=== PATIENT | female | born 1995 | race American Indian/Alaskan Native ===

== ENCOUNTER 2018-03-19 12:40 | Emergency (ER) | payer SELFPAY ==
--- NOTE | 2018-03-19 14:45 | EDPHYS ---
Physician Documentation [facility] Name: Larry Morrow Age: 22 yrs Sex: Female : 1995 Arrival Date: 03/19/2018 Time: 12:43 Bed 12 Private MD: Hiro Cornelius HPI: 03/19 15:31 This 22 yrs old Other Female presents to ER via Ambulatory with complaints of Toe snw Problem. 15:31 The patient's rash thought to be caused by Dermatitis. The rash is located on the snw plantar aspect of right first toe, right first toe, right second toe, right third toe, Right first toenail, Right second toenail, Right third toenail and Right fourth toenail. The rash can be described as patchy, vesicular. Onset: The symptoms/episode began/occurred suddenly, 3 day(s) ago, and became persistent. Severity of symptoms: At their worst the symptoms were moderate. Treatment given at home: using antifungal spray and toenail kinyarwanda for fungus. The patient has not experienced similar symptoms in the past. Historical: - Allergies: 12:50 No Known Allergies; sv - PMHx: 12:50 None; sv - PSHx: 12:50 None; sv - Immunization history:: Flu vaccine is not up to date. - Social history:: Smoking status: Patient/guardian denies using tobacco, the patient reports quitting approximately .5 years ago. - Ebola Screening: : No symptoms or risks identified at this time. ROS: 15:28 Constitutional: Negative for fever, chills, and weight loss, Eyes: Negative for injury, snw pain, redness, and discharge, ENT: Negative for injury, pain, and discharge, Neck: Negative for injury, pain, and swelling, Cardiovascular: Negative for chest pain, palpitations, and edema, Respiratory: Negative for shortness of breath, cough, wheezing, and pleuritic chest pain, Abdomen/GI: Negative for abdominal pain, nausea, vomiting, diarrhea, and constipation, Back: Negative for injury and pain, : Negative for injury, bleeding, discharge, and swelling, Skin: Negative for injury, rash, and discoloration, Neuro: Negative for headache, weakness, numbness, tingling, and seizure. 15:28 MS/extremity: Positive for discoloration of toenails to right foot. Exam: 15:28 Constitutional: This is a well developed, well nourished patient who is awake, alert, snw and in no acute distress. Head/Face: Normocephalic, atraumatic. Eyes: Pupils equal round and reactive to light, extra-ocular motions intact. Lids and lashes normal. Conjunctiva and sclera are non-icteric and not injected. Cornea within normal limits. Periorbital areas with no swelling, redness, or edema. ENT: Nares patent. No nasal discharge, no septal abnormalities noted. Tympanic membranes are normal and external auditory canals are clear. Oropharynx with no redness, swelling, or masses, exudates, or evidence of obstruction, uvula midline. Mucous membranes moist. Neck: Trachea midline, no thyromegaly or masses palpated, and no cervical lymphadenopathy. Supple, full range of motion without nuchal rigidity, or vertebral point tenderness. No Meningismus. Chest/axilla: Normal chest wall appearance and motion. Nontender with no deformity. No lesions are appreciated. Cardiovascular: Regular rate and rhythm with a normal S1 and S2. No gallops, murmurs, or rubs. Normal PMI, no JVD. No pulse deficits. Respiratory: Lungs have equal breath sounds bilaterally, clear to auscultation and percussion. No rales, rhonchi or wheezes noted. No increased work of breathing, no retractions or nasal flaring. Abdomen/GI: Soft, non-tender, with normal bowel sounds. No distension or tympany. No guarding or rebound. No evidence of tenderness throughout. Back: No spinal tenderness. No costovertebral tenderness. Full range of motion. Skin: Warm, dry with normal turgor. Normal color with no rashes, no lesions, and no evidence of cellulitis. discoloration of right great - fourth toenails, skin to bottom of great toe and webbing of 2nd-4th toes with erythema and some tiny vesicles Neuro: Awake and alert, GCS 15, oriented to person, place, time, and situation. Cranial nerves II-XII grossly intact. Motor strength 5/5 in all extremities. Sensory grossly intact. Cerebellar exam normal. Normal gait. Psych: Awake, alert, with orientation to person, place and time. Behavior, mood, and affect are within normal limits. Vital Signs: 12:50 BP 117 / 71; Pulse 85; Resp 18; Temp 98.4; Pulse Ox 100% ; Weight 81.65 kg; Height 5 sv ft. 7 in. (170.18 cm); Pain 0/10; 12:50 Body Mass Index 28.19 (81.65 kg, 170.18 cm) sv MDM: 14:28 Patient medically screened. [facility] 15:31 Data reviewed: vital signs, nurses notes. Data interpreted: Pulse oximetry: on room air snw is 100 %. Interpretation: normal. Counseling: I had a detailed discussion with the patient and/or guardian regarding: the historical points, exam findings, and any diagnostic results supporting the discharge/admit diagnosis, the need for outpatient follow up, to return to the emergency department if symptoms worsen or persist or if there are any questions or concerns that arise at home. Special discussion: Based on the history and exam findings, there is no indication for further emergent testing or inpatient evaluation. I discussed with the patient/guardian the need to see the explosive specialist for further evaluation of the symptoms. Administered Medications: 14:58 Drug: DiFLUcan 150 mg Route: PO; rv 14:58 Follow up: Response: Medication administered at discharge. rv Disposition: 15:51 Co-signature as Attending Physician, Hiro Pettit MD I agree with the assessment and [facility] plan of care. Disposition: 03/19/18 14:44 Discharged to Home. Impression: Tinea pedis. - Condition is Stable. - Discharge Instructions: Athlete's Foot. - Prescriptions for Fluconazole 150 mg Oral Tablet - take 1 tablet by ORAL route one time take orally in one week; 1 tablet. - Work release form, Medication Reconciliation Form, Thank You Letter, Antibiotic Education, Prescription Opioid Use form. - Follow up: Private Physician; When: 2 - 3 days; Reason: Recheck today's complaints, Continuance of care, Re-evaluation by your physician. Follow up: Emergency Department; When: As needed; Reason: Worsening of condition. Signatures: Sara Espinoza, Hiro Alfredo RN, MD MD cha Therrien, Shelly, WASHERETTE MACHINE OPERATOR-C WASHERETTE MACHINE OPERATOR-Csnw Balwinder Mckeon, RN RN rv Corrections: (The following items were deleted from the chart) 15:01 14:44 03/19/2018 14:44 Discharged to Home. Impression: Tinea pedis. Condition is rv Stable. Forms are Medication Reconciliation Form, Thank You Letter, Antibiotic Education, Prescription Opioid Use. Follow up: Private Physician; When: 2 - 3 days; Reason: Recheck today's complaints, Continuance of care, Re-evaluation by your physician. Follow up: Emergency Department; When: As needed; Reason: Worsening of condition. snw
--- NOTE | 2018-03-19 14:45 | ER ---
Nurse's Notes [facility] Name: Larry Morrow Age: 22 yrs Sex: Female : 1995 Arrival Date: 03/19/2018 Time: 12:43 Bed 12 Private MD: Diagnosis: Tinea pedis Presentation: 03/19 12:49 Presenting complaint: Patient states: right foot toenail discoloration noted on sv and has progressively gotten worse. Transition of care: patient was not received from another setting of care. Onset of symptoms was March 15, 2017. Care prior to arrival: None. 12:49 Method Of Arrival: Ambulatory sv 12:49 Acuity: STERLING 4 sv 15:01 Risk Assessment: Do you want to hurt yourself or someone else? Patient reports no rv desire to harm self or others. Initial Sepsis Screen: Does the patient meet any 2 criteria? No. Patient's initial sepsis screen is negative. Does the patient have a suspected source of infection? No. Patient's initial sepsis screen is negative. Triage Assessment: 12:49 General: Appears in no apparent distress. comfortable, Behavior is calm, cooperative, sv appropriate for age. Pain: Denies pain. Neuro: Level of Consciousness is awake, alert, obeys commands, Oriented to person, place, time, situation, Moves all extremities. Full function Gait is steady. Respiratory: Respiratory effort is even, unlabored, Respiratory pattern is regular, symmetrical. Derm: right toes are discolored. Historical: - Allergies: 12:50 No Known Allergies; sv - PMHx: 12:50 None; sv - PSHx: 12:50 None; sv - Immunization history:: Flu vaccine is not up to date. - Social history:: Smoking status: Patient/guardian denies using tobacco, the patient reports quitting approximately .5 years ago. - Ebola Screening: : No symptoms or risks identified at this time. Screenin:00 Abuse screen: Denies threats or abuse. Denies injuries from another. Nutritional rv screening: No deficits noted. Tuberculosis screening: No symptoms or risk factors identified. Fall Risk None identified. Assessment: 14:58 General: Appears in no apparent distress. comfortable, Behavior is calm, cooperative. rv Pain: Denies pain. Neuro: Level of Consciousness is awake, alert, obeys commands, Oriented to person, place, time, situation. Cardiovascular: Capillary refill < 3 seconds. Respiratory: Airway is patent. GI: No signs and/or symptoms were reported involving the gastrointestinal system. : No signs and/or symptoms were reported regarding the genitourinary system. EENT: No signs and/or symptoms were reported regarding the EENT system. Derm:. Musculoskeletal: No signs and/or symptoms reported regarding the musculoskeletal system. 15:00 Derm: Reports discoloration of the right toe nail. rv Vital Signs: 12:50 BP 117 / 71; Pulse 85; Resp 18; Temp 98.4; Pulse Ox 100% ; Weight 81.65 kg; Height 5 sv ft. 7 in. (170.18 cm); Pain 0/10; 12:50 Body Mass Index 28.19 (81.65 kg, 170.18 cm) sv ED Course: 12:43 Patient arrived in ED. as 12:50 Triage completed. sv 12:50 [facility] snw 12:50 Hiro Pettit MD is Attending Physician. snw 12:51 Arm band placed on. sv 14:23 Promise Landin, RN is Primary Nurse. iw 15:00 Patient has correct armband on for positive identification. Call light in reach. Adult rv w/ patient. Pulse ox on. 15:01 No provider procedures requiring assistance completed. Patient did not have IV access rv during this emergency room visit. Administered Medications: 14:58 Drug: DiFLUcan 150 mg Route: PO; rv 14:58 Follow up: Response: Medication administered at discharge. rv Outcome: 14:44 Discharge ordered by . snw 15:01 Discharged to home ambulatory. rv 15:01 Condition: good 15:01 Discharge instructions given to patient, family, Instructed on discharge instructions, follow up and referral plans. medication usage, Demonstrated understanding of instructions, follow-up care, medications, Prescriptions given X 1. 15:01 Patient left the ED. rv Signatures: Sara Espinoza RN RN sv Therrien, Shelly, FNP-C FNP-Cinthia Cabrera as Promise Landin RN RN iw Balwinder Mckeon RN RN rv
[2018-03-19] MEDS ORDERED: FLUCONAZOLE 100 MG TAB ONE (15:02)
== END 2018-03-19 15:01 | disposition home or self-care (01) ==
LOC: ER 12:40
DX: B35.3 Tinea pedis (principal)